=== PATIENT | female | born 1975 | race African-American/Black ===

== ENCOUNTER 2020-12-07 07:42 | Outpatient (CLI) | payer OTHER, SELFPAY ==
--- NOTE | 2020-12-07 08:28 | ECG_ITS ---
Measurements Intervals [place] Rate: 50 P: 0 WV: 189 QRS: 18 QRSD: 93 T: 14 QT: 487 QTc: 446 Interpretive Statements SINUS BRADYCARDIA BORDERLINE ECG Electronically Signed On 12-07-2020 8:52:13 CDT by Russell Palmer D.O.
[2020-12-07 08:44] LABS: Anion Gap 9 mmol/L (8-16); Blood Urea Nitrogen 21 mg/dL (7-17); Calcium 9.1 mg/dL (8.4-10.2); Carbon Dioxide 26 mmol/L (22-30); Chloride 106 mmol/L (98-107); Estimated Glomerular Filt Rate 59; Glucose 103 mg/dL (65-105); Potassium 3.8 mmol/L (3.4-5.0); Sodium 141 mmol/L (137-145)
== END 2020-12-07 07:43 | disposition home or self-care (01) ==
PROVIDERS: Visit Provider Anesthesiology
DX: Z79.899 Other long term (current) drug therapy (principal); I10 Essential (primary) hypertension; Z01.818 Encounter for other preprocedural examination; R94.31 Abnormal electrocardiogram [ECG] [EKG]
CPT/HCPCS: 36415; 80048; 93005

== ENCOUNTER 2020-12-13 01:42 | Day surgery (SDC) | payer OTHER, SELFPAY ==
[2020-12-01 08:52] VITALS: BMI 38.4
[2020-12-13] VITALS (12 sets, daily range): BP systolic 137–168; BP diastolic 68–98; PULSE 50–68; RESP 12–20; TEMP 36.4–36.8; O2SAT 94–100
[2020-12-13] MEDS: ACETAMINOPHEN 500 MG TABLET 1000 MG PO (11:19)
[2020-12-13] MEDS: KETOROLAC 15 MG/ML VIAL (*BKC) IV PUSH (11:21)
[2020-12-13] MEDS: LACTATED RINGERS 1,000 ML 30 ML IV CONT ×2 (11:28→14:08)
--- NOTE | 2020-12-13 12:00 | WPDANESEPPF ---
Anes - Initial Pre Proc Eval Procedure: Operation Date: 12/13/20 12:45 Proposed Procedures p Laparoscopic Bilateral Tubal Ligation, with Rings, - Khari Gallego MD s Hysteroscopy With Valerie Ablation - Khari Gallego MD Date/Time: 12/13/20 12:00 Surgeon: Khari Gallego MD Pre Op Diagnosis: abnormal uterine bleeding, desires sterilization Patient Data Age: 45 Gender: F Height: 1.68 m Weight: 107.8 kg Last Vital Signs Temp 36.8 C 12/13/20 11:39 Pulse 53 L 12/13/20 11:39 Resp 14 12/13/20 11:39 BP 139/80 12/13/20 11:39 Pulse Ox 100 12/13/20 11:39 Allergies Allergy/AdvReac Type Severity Reaction Status Date / Time No Known Allergies Allergy Unverified 12/13/20 11:36 Home Medications Medication Instructions Recorded Confirmed Type Adult Low Dose Aspirin 81 mg PO DAILY 11/30/20 12/13/20 History hydrochlorothiazide 25 mg PO DAILY 11/30/20 11/30/20 History losartan 100 mg PO DAILY 11/30/20 11/30/20 History metoprolol tartrate 100 mg PO DAILY 11/30/20 12/13/20 History montelukast 10 mg PO DAILY 11/30/20 11/30/20 History blggfihyocxv-eky-lkwn-FA-vit K 1 tablet PO DAILY 11/30/20 11/30/20 History [Adults Multivitamin] temazepam 30 mg PO HS 11/30/20 11/30/20 History trazodone 100 mg PO HS PRN 11/30/20 11/30/20 History ooetgokfymw-ursinnqps-dacxnini 2 inh INHALATION PRN PRN 12/01/20 12/01/20 History [Trelegy Ellipta] Patient hx anesthesia problems: none Family hx anesthesia problems: none PMFSH Past Medical History Medical History (Updated 12/13/20 @ 12:03 by Justin Dobson MD) HTN (hypertension) Obesity Surgical History Surgical History (Updated 12/13/20 @ 12:03 by Justin Dobson MD) Hx of tonsillectomy Social History Social History Smoking status: Never smoker Alcohol intake: current Drinks per week: 4 Substance use: never Substance use type: does not use Anes - Eval Final PreProcedure Day of Procedure 12/13/20 12:00 Patient weight: obese Heart: regular rate and rhythm Lungs: clear to auscultation Airway: Mallampati scale class II Neurological: alert and oriented Last oral intake: >/= 8 hours ASA classification: III Emergent: no Anesthetic plan: proceed Anesthesia type and monitoring: general ETT and standard monitoring Informed Consent: The patient's anesthetic plan and its attendant risks and benefits were discussed with the patient/family/POA. Questions were solicited and answers provided to the satisfaction of the patient/family/POA.
--- NOTE | 2020-12-13 12:29 | PM.HPGS ---
History of Present Illness History of Present Illness Consent: Risks, benefits, and alternatives have been discussed and questions answered. Patient agrees to proceed with procedure. Chief complaint: abnormal uterine bleeding, desires sterilization Narrative: Karan Wild is a 45 year old female A1 with abnormal bleeding and desires sterilization Review of Systems Review of Systems: All systems reviewed & are unremarkable except as noted in HPI and below PMFSH Past Medical History Medical History (Updated 12/13/20 @ 12:30 by Khari Gallego MD) Abnormal uterine bleeding (AUB) HTN (hypertension) Obesity Request for sterilization Surgical History Surgical History Hx of tonsillectomy Social History Social History Smoking status: Never smoker Alcohol intake: current Drinks per week: 4 Substance use: never Substance use type: does not use Meds Home Medications and Allergies Home Medications Medication Instructions Recorded Confirmed Type Adult Low Dose Aspirin 81 mg PO DAILY 11/30/20 12/13/20 History hydrochlorothiazide 25 mg PO DAILY 11/30/20 11/30/20 History losartan 100 mg PO DAILY 11/30/20 11/30/20 History metoprolol tartrate 100 mg PO DAILY 11/30/20 12/13/20 History montelukast 10 mg PO DAILY 11/30/20 11/30/20 History rbafcwuggbiq-amr-jzwl-FA-vit K 1 tablet PO DAILY 11/30/20 11/30/20 History [Adults Multivitamin] temazepam 30 mg PO HS 11/30/20 11/30/20 History trazodone 100 mg PO HS PRN 11/30/20 11/30/20 History sneiasurddg-veltgvfgs-rafkccug 2 inh INHALATION PRN PRN 12/01/20 12/01/20 History [Trelegy Ellipta] Allergies Allergy/AdvReac Type Severity Reaction Status Date / Time No Known Allergies Allergy Unverified 12/13/20 11:36 Vital Signs Vital Signs - 24 hr 12/13/20 11:39 Temperature 36.8 C Pulse Rate 53 L Respiratory Rate 14 Blood Pressure 139/80 Pulse Oximetry 100 Exam Cardio: Rate: regular rate Rhythm: regular rhythm GI: Auscultation: normal bowel sounds : Bimanual exam- vagina & uterus: normal bimanual exam Assessment and Plan Assessment and plan (1) Abnormal uterine bleeding (AUB): Code(s): N93.9 - Abnormal uterine and vaginal bleeding, unspecified Status: Acute Assessment and Plan: Scheduled for a laparoscopy with a bilateral tubal ligation and hysteroscopy with ablation. (2) Request for sterilization: Code(s): Z30.2 - Encounter for sterilization Status: Acute
--- NOTE | 2020-12-13 12:32 | WPDHPUPDATE1 ---
History and Physical Update Update Date/Time: 12/13/20 12:32 History and Physical has been reviewed, including an updated exam of the patient. There are NO changes in the patient's condition. Risks, benefits, and alternatives have been discussed and questions answered. Patient agrees to proceed with procedure.
[2020-12-13] MEDS: HYDROmorphone HCL INJ (*CRX) 1 MG/ML SYR 0.25 MG IV PUSH ×6 (14:34→15:25)
--- NOTE | 2020-12-13 14:39 | P.OP_ITS ---
Procedure Note - Detailed Date of Procedure 12/13/20 Pre-op Diagnosis abnormal uterine bleeding, desires sterilization Post-op Diagnosis same Procedure Performed diagnostic laparoscopy with bilateral salpingectomy and hysteroscopy with Mitch Coombs and [place] ablation Surgeon Khari Gallego MD Anesthesia general Indications irregular heavy bleeding Findings grossly normal uterus tubes and ovaries and large fibroid in the endometrial cavity Description of Procedure patient taken to the operating room with IV running she was prepped and draped in a normal sterile fashion and placed in the lithotomy position. A bivalve speculum was placed into the vagina and acorn uterine manipulator was placed with a single-tooth tenaculum on the anterior lip of the cervix. The bladder was drained 100cc of clear urine. attention was then turned to the abdomen in which 5cc lidocaine with epi was injected in the umbilical fold. A 1cm incision was made and the Veress needle was introduced into the uterine cavity water drop test was done and the abdomen was and some insufflated with CO2 gas noting a -2 mm and pressure prior to insufflation. The abdomen was filled with CO2 until max pressure of 15mmHg. A trocar 5mm was placed under direct visualization into the umbilical fold and a right and left trocar was placed under direct visualization. The left tube was grasped and the LigaSure device was used to transect and ligate the left tube and was removed from the abdomen through the 5mm port attention was then turned to the right to and hand the same procedure was transected and ligated and removed out of the 5mm port hemostasis was noted right and left trocars were removed and the umbilical trocar was removed and the gas was deflated. Attention was then turned to the vagina the tenaculum and the acorn manipulator removed. [place] speculum was placed into the vagina and the cervix was grasped with a single-tooth tenaculum. The uterus was sound to 10cm and the cervix was dilated with Quang dilators and the uterine cavity was measured to be 6 the hysteroscope was introduced and noted a large fibroid on the patient's left wall of the uterus this fibroid was thought to transect through the MyoSure device. The MyoSure device was then removed. The chap[place]ito was introduced into the uterine cavity and the balloon was insufflated and the device passed on the 1st attempt. The minor device was activated the uterus was ablated for 2 minutes and device were removed. The hysteroscope was reintroduced and noted on ablated uterus. All instruments were removed from the vagina And hemostasis was assured. patient tolerated the procedure well. patient was taken to the recovery room in stable condition. Estimated Blood Loss 20 Urine Output 100 Drains No Packing No Pathology none sent Complications None Condition stable Disposition PACU
[2020-12-13] MEDS: oxyCODONE HCL (*CRX) 5 MG TAB IR PO (16:05)
== END 2020-12-13 16:50 | disposition home or self-care (01) ==
PROVIDERS: Visit Provider Obstetrics & Gynecology
PROC: (CPT 58671; principal; 2020-12-13 12:45)
PROC: 0U5B8ZZ Destruction of Endometrium, Via Natural or Artificial Opening Endoscopic (ICD-10-PCS; CPT 58563; 2020-12-13 12:45)
DX: Z30.2 Encounter for sterilization (principal); N93.9 Abnormal uterine and vaginal bleeding, unspecified; D25.0 Submucous leiomyoma of uterus; I10 Essential (primary) hypertension; Z79.82 Long term (current) use of aspirin; E66.9 Obesity, unspecified; Z68.38 Body mass index [BMI] 38.0-38.9, adult
CPT/HCPCS: 58661; 58563; 36415; 80048; 88302; 88305; 93005; A9270; J0330; J1100; J1170; J1885; J2250; J2405; J2704; J3010; J7030; J7120

== ENCOUNTER 2023-07-03 10:17 | Outpatient (CLI) | payer BC, SELFPAY ==
--- NOTE | 2023-07-03 10:28 | ECG_ITS ---
Measurements Intervals [place] Rate: 54 P: 37 ND: 183 QRS: 19 QRSD: 87 T: 53 QT: 431 QTc: 411 Interpretive Statements SINUS BRADYCARDIA BASELINE ARTIFACT- I, II, III, AVR, AVL, AVF BORDERLINE ECG COMPARED TO ECG 12/07/2020 08:45:59 NO SIGNIFICANT CHANGES Electronically Signed On 07-03-2023 11:44:14 [employer] by Russell Palmer D.O.
[2023-07-03 11:02] LABS: Anion Gap 6 mmol/L (8-16); Blood Urea Nitrogen 15 mg/dL (7-17); Carbon Dioxide 26 mmol/L (22-30); Chloride 106 mmol/L (98-107); Estimated Glomerular Filt Rate > 60; Glucose 98 mg/dL (65-110); Potassium 3.9 mmol/L (3.4-5.0); Sodium 138 mmol/L (137-145)
== END 2023-07-03 10:18 | disposition home or self-care (01) ==
LOC: ANHSURGERY 10:24
PROVIDERS: Anesthesiology; PCP Nurse Practitioner Family; Visit Provider Obstetrics & Gynecology
DX: Z01.818 Encounter for other preprocedural examination (principal); N93.9 Abnormal uterine and vaginal bleeding, unspecified; I10 Essential (primary) hypertension; R93.1 Abnormal findings on diagnostic imaging of heart and coronary circulation; Z79.899 Other long term (current) drug therapy
CPT/HCPCS: 36415; 80048; 86850; 86900; 86901; 93005

== ENCOUNTER 2023-08-01 01:21 | Day surgery (SDC) | payer BC, SELFPAY ==
[2023-06-27 14:37] VITALS: BMI 39.6
--- NOTE | 2023-06-27 14:38 | PC.NURSE ---
Addendum entered by Clarisse Posada RN 07/20/23 10:21: PT TO ARRIVE AT 1000 ON 08/01/23 FOR SURGERY AT 1200. MAY TAKE METOPROLOL AND CLONIDINE IF NEEDED MORNING OF SURGERY. LAST DOSE OF VITAMINS 07/28/23. Original Note: Report to the Outpatient Waiting Room, entrance under the green pavilion located off [facility], at time _1000_ on date _[id number]_. Planned Procedure Time: _1200_. Time changes happen often and if your time is changed the preop area will call you the afternoon before. - You and your visitor will be asked to self-screen and do not enter if you have any COVID symptoms. - A mask is optional within the hospital at this time. Patients may have clear liquids (water, carbonated beverages, clear teas, apple juice) until 3 hours prior to surgery with a maximum of 20 ounces. - No food from midnight until time of surgery Take the following medications with a SIP of water the morning of surgery: ___Metoprolol DO NOT STOP ANY OF YOUR OTHER PRESCRIPTION MEDICATIONS PRIOR TO SURGERY ?EXCEPT THE FOLLOWING Medications to discontinue per physician Multivitamin Date to take last [id number] Please no make-up, nail turkmen, hairspray, perfume, deodorant, or body powder the day of surgery. No jewelry (including any body piercings) or valuables the day of surgery, leave them at home. Please take a shower or bath the night before, or the morning of, surgery with an antibacterial soap. Wear comfortable, loose fitting clothing. - Jewelry must be removed prior to entering the operating room. Rings and piercings that are not removed may be cut off. - The hospital will not accept responsibility for valuables. - Please leave all valuables, including medications, at home the day of surgery. If you are going home after surgery, a licensed sprinkler driver must drive you home. - NO public transportation without another adult if you receive anesthesia. - We recommend that an adult stay with you for 24 hours following discharge. - We also recommend that you do not drive, make important decision, drink alcoholic beverages, or take any drugs that were not prescribed by your health care provider for at least 24 hours after your discharge time. Follow any additional instructions given to you from your surgeon. If you or anyone in your household have experienced Covid symptoms in the past week, please notify your surgeon or the nurse liaison at the phone number below for possible testing. Telephone instructions given to __Karan__and asked if any additional questions and then verbalized understanding. Patient advised to call surgeon office or pre surgery nurse liaison [phone] if any additional questions.
--- NOTE | 2023-07-20 10:20 | PC.NURSE ---
Medications updated. Pt states no other changes in medications or health history since initial interview. New pre-op instructions reviewed with pt. Pt denies further questions at this time.
--- NOTE | 2023-07-31 14:26 | P.PNAN_ITS ---
Anes - Initial Pre Proc Eval Procedure: Operation Date: 08/01/23 12:00 Proposed Procedures p Laparoscopic Assisted Vaginal Hysterectomy - Khari Gallego MD Date/Time: 07/31/23 14:26 Surgeon: Khari Gallego MD Pre Op Diagnosis: leiomyoma of uterus, excessive & freq menst w/cycl Patient Data Age: 48 Gender: F Height: 1.68 m Weight: 111.4 kg Allergies Allergy/AdvReac Type Severity Reaction Status Date / Time No Known Allergies Allergy Unverified 08/01/23 10:36 Home Medications Medication Instructions Recorded Confirmed Type Adult Low Dose Aspirin 81 mg PO DAILY 11/30/20 08/01/23 History hydrochlorothiazide 25 mg tablet 25 mg PO DAILY 11/30/20 08/01/23 History losartan 100 mg tablet 100 mg PO DAILY 11/30/20 08/01/23 History metoprolol tartrate 100 mg tablet 100 mg PO DAILY 11/30/20 08/01/23 History montelukast 10 mg tablet 10 mg PO DAILY PRN Allergy Symptoms 11/30/20 07/20/23 History multivit with minerals-iron 18 1 tablet PO DAILY 11/30/20 08/01/23 History mg-folic ac 400 mcg-vit K 25 mcg tablet (Adults Multivitamin) temazepam 30 mg capsule 30 mg PO HS 11/30/20 08/01/23 History clonidine HCl 0.2 mg tablet 0.2 mg PO TID PRN Hypertension 07/20/23 07/20/23 History hydralazine 50 mg tablet 50 mg PO DAILY 08/01/23 08/01/23 History Patient hx anesthesia problems: none Family hx anesthesia problems: none Results Review: All pre-operative results and documents have been reviewed as part of the pre- operative evaluation. [facility] Past Medical History Medical History (Updated 12/13/20 @ 12:30 by Khari Gallego MD) Abnormal uterine bleeding (AUB) HTN (hypertension) Obesity Request for sterilization Surgical History Surgical History Hx of tonsillectomy Social History Social History Smoking status: Never smoker Alcohol intake: current Drinks per week: 3 Substance use: never Substance use type: does not use Living arrangements: with family Spiritual care concerns: No Anes - Eval Final PreProcedure Day of Procedure 07/31/23 14:26 Patient weight: obese Heart: regular rate and rhythm Lungs: clear to auscultation Airway: Mallampati scale class III Neurological: alert and oriented Last oral intake: >/= 8 hours ASA classification: III Emergent: no Anesthetic plan: proceed Anesthesia type and monitoring: general ETT and standard monitoring Results Review: All pre-operative results and documents have been reviewed as part of the pre- operative evaluation. Informed Consent: The patient's anesthetic plan and its attendant risks and benefits were discussed with the patient/family/POA. Questions were solicited and answers provided to the satisfaction of the patient/family/POA.
[2023-08-01] VITALS (9 sets, daily range): BP systolic 126–178; BP diastolic 67–88; PULSE 50–77; RESP 13–18; TEMP 36.2–36.9; O2SAT 99–100
[2023-08-01] MEDS: ACETAMINOPHEN 500 MG TABLET 1000 MG PO (10:35)
[2023-08-01] MEDS: LACTATED RINGERS 1,000 ML 30 ML IV CONT ×2 (10:50→14:41)
[2023-08-01] MEDS: KETOROLAC 15 MG/ML VIAL (*BKC) IV PUSH (11:03)
--- NOTE | 2023-08-01 11:29 | PM.IMHP ---
H&P: HPI History of Present Illness Date/Time: 08/01/23 11:29 Chief Complaint: abnormal bleeding Narrative: 48 y/o with long history of heavy abnormal bleeding presented to the office with prolonged bleeding. [facility] Past Medical History Medical History Abnormal uterine bleeding (AUB) HTN (hypertension) Obesity Request for sterilization Surgical History Surgical History Hx of tonsillectomy Social History Social History Smoking status: Never smoker Alcohol intake: current Drinks per week: 3 Substance use: never Substance use type: does not use Living arrangements: with family Spiritual care concerns: No Meds Home Medications and Allergies Home Medications Medication Instructions Recorded Confirmed Type Adult Low Dose Aspirin 81 mg PO DAILY 11/30/20 08/01/23 History hydrochlorothiazide 25 mg tablet 25 mg PO DAILY 11/30/20 08/01/23 History losartan 100 mg tablet 100 mg PO DAILY 11/30/20 08/01/23 History metoprolol tartrate 100 mg tablet 100 mg PO DAILY 11/30/20 08/01/23 History montelukast 10 mg tablet 10 mg PO DAILY PRN Allergy Symptoms 11/30/20 07/20/23 History multivit with minerals-iron 18 1 tablet PO DAILY 11/30/20 08/01/23 History mg-folic ac 400 mcg-vit K 25 mcg tablet (Adults Multivitamin) temazepam 30 mg capsule 30 mg PO HS 11/30/20 08/01/23 History clonidine HCl 0.2 mg tablet 0.2 mg PO TID PRN Hypertension 07/20/23 07/20/23 History hydralazine 50 mg tablet 50 mg PO DAILY 08/01/23 08/01/23 History Allergies Allergy/AdvReac Type Severity Reaction Status Date / Time No Known Allergies Allergy Unverified 08/01/23 10:36 Vital Signs Vital Signs - 24 hr 08/01/23 10:16 Temperature 97.1 F L Pulse Rate 58 L Respiratory Rate 18 Blood Pressure 154/85 H Pulse Oximetry 100 Oxygen Delivery Room Air Exam Chest: Chest palpation & inspection: normal inspection of the chest Resp: Effort & Inspection: normal respiratory effort Cardio: Rate: regular rate Rhythm: regular rhythm Heart sounds: S1 normal heart sound present and S2 normal heart sound present : External Female Exam: normal external appearance Speculum Exam - Vagina: normal appearance of the vagina and normal vaginal discharge Speculum Exam - Cervix: normal appearance of the cervix Extrem: General: normal to inspection Assessment and Plan Assessment and plan (1) Abnormal uterine bleeding (AUB): Code(s): N93.9 - Abnormal uterine and vaginal bleeding, unspecified Status: Acute Plan Laparoscopic assisted vaginal hysterectomy - risk and benefits reviewed with patient in detail including bleeding, infection, and trauma.
--- NOTE | 2023-08-01 11:43 | WPDHPUPDATE1 ---
History and Physical Update Update Date/Time: 08/01/23 11:43 History and Physical has been reviewed, including an updated exam of the patient. There are NO changes in the patient's condition. Risks, benefits, and alternatives have been discussed and questions answered. Patient agrees to proceed with procedure.
[2023-08-01] MEDS: ceFAZolin 2 GM/D5W 50 ML 2 GM/50 ML BAG IVPB (12:11)
[2023-08-01] MEDS: LIDO 1%/EPINEPHRINE 1:100,000 50 ML VIAL 30 ML INFILTRATE (13:03)
--- NOTE | 2023-08-01 14:38 | P.OPB_ITS ---
Procedure Note - Brief Procedure Note - Brief Date of procedure: 08/01/23 leiomyoma of uterus, excessive & freq menst w/cycl Post-op diagnosis: Same Procedure performed: [facility] Surgeon: Khari Gallego MD Findings: normal ovaries enlarged uterus with pedunculated fibroid Description of procedure: laparoscopic assisted removal of uterus and cervix through vagina Estimated blood loss (mL): 300 Urine output (mL): 100 Packing: Yes Pathology: Yes Condition: Stable Disposition: PACU
--- NOTE | 2023-08-01 14:41 | W.PM.PROC2 ---
Procedure Note - Detailed Date of Procedure 08/01/23 Pre-op Diagnosis leiomyoma of uterus, excessive & freq menst w/cycl Post-op Diagnosis Same Procedure Performed [facility] Surgeon Khari Gallego MD Anesthesia General Indications Abnormal uterine bleeding Findings enlarged uterus with fibroids normal ovaries Description of Procedure A general anesthesia was induced and the patient was placed in the dorsal lithotomy position. The abdomen, perineum, and vagina were prepped and draped in the usual fashion. A barros catheter inserted into the bladder and attached to straight drainage. After the initial preparation, the procedure commenced at the vagina. With a speculum in place to visualize the cervix, the anterior lip of the cervix were separately grasped and clamped with single tooth tenaculums. The uterus was sounded to 8cm an acourn manipulator was placed for manipulation purposes being careful not to puncture the uterus. . Attention was then turned to the abdomen. Following infiltration with lidocaine with epinephrine, an infraumbilical incision was made and the Veress needle was gently advanced taking care to feel for the typical sensation of penetrating the peritoneum. With CO2 infiltration, an opening pressure of 7 mmHg was noted, and following this, a pneumoperitoneum of 15 mmHg was created. A 5 mm trocar was then passed through the same incision and the laparoscope was then inserted through the trocar sleeve. Visualization of the peritoneal cavity was then obtained and a brief inspection did not reveal any signs of complications from entry. Under direct observation, 5mm flank ports were then placed laterally on both the right and left sides taking care to respect anatomical landmarks and vessels. Once the placement of the ports was complete, the actual laparoscopic procedure began. Beginning on the right side the round ligament was then ligated and cut and distally along the length of the fallopean tube had been transected prior. the mesosalpinx was exposed by lifting the ovary up towards the anterior abdominal wall. The mesosalpinx was then sequentially, clamped, ligated, and cut using the ligasure working alongside the length of the tube and towards the cornua. Once the level of the cornua was reached (the tube was cut, removed through the port, and) attention was then turned to the other side. The same process was repeated on the left, sequentially clamping, ligating, and cutting the mesosalpinx being sure to not injure the adjacent ovarian tissue or other surrounding structures. Following this, the anterior leaf of the broad ligament was then taken down on the left side, dissecting down towards the peritoneal reflection at the base of the bladder and adjacent to the cervix. The same process was then repeated on the left side such that both sides met and the anterior leaflet had been appropriately skeletonized. To ensure excellent hemostasis prior to further manipulation, the pedicles of the cardinal ligament was then ligated and divided on each side using the Ligasure. Attention was then turned to the vaginal aspect of the surgery. . A weighted speculum wa placed in the posterior aspect of the vagina and the weighted speculum was inserted after manipulator removed. . The tenacula were repositioned anteriorly and posteriorly. A circumferential incision was made at the cervical vaginal reflection using cautery after injecting with 1% lidocaine with epinephrine. This was undermind first anteriorly and a copotomy made without difficulty. This was then repeated posteriorly and a similar colpotomy made. Yuliet retractors were then placed into each of these incisions. Beginning first on the patient's left, the uterosacral and cardnal ligament was clamped, divided, and suture ligated. Two bites were required to reach the previous dssection margin of the left side. THe same process was then repeated on the patient's right hand side, at which point, the specimen was c
[2023-08-01] MEDS: fentaNYL CITRATE INJ (*CRX) 100 MCG/2 ML VIAL 25 MCG IV PUSH ×3 (15:15→15:38)
--- NOTE | 2023-08-01 15:24 | SUR.PHASEI ---
1520 - spoke with friend. updated. friend has pts. purse and bookbag.
[2023-08-01] MEDS: DEXTROSE 5%/0.45% SOD CHL 1,000 ML 125 ML IV CONT ×2 (16:45→23:38)
[2023-08-01] MEDS: KETOROLAC 30 MG/ML VIAL (*BKC) IV PUSH ×2 (17:20→23:40)
[2023-08-01] MEDS: hydrALAZINE HCL 50 MG TABLET PO ×2 (17:48→21:39)
[2023-08-01] MEDS: SIMETHICONE 80 MG TAB.CHEW PO ×2 (17:52→21:30)
[2023-08-01] MEDS: METOPROLOL TARTRATE 50 MG TAB 100 MG PO (21:29)
[2023-08-01] MEDS: SENNA/DOCUSATE SODIUM TABLET 2 TAB PO (21:30)
[2023-08-01] MEDS: HYDROcodone/acetaminophen (*CRX) 5-325 MG TABLET 1 TAB PO (21:40)
[2023-08-01] MEDS: cloNIDine HCL 0.2 MG TABLET PO (23:37)
[2023-08-02 03:30] VITALS: BP 151/65; PULSE 69; RESP 18; TEMP 36.6; O2SAT 100
[2023-08-02] MEDS: KETOROLAC 30 MG/ML VIAL (*BKC) IV PUSH (05:28)
[2023-08-02 06:43] LABS: Basophils Percent Auto 0.1 % (0.2-1.2); Hematocrit 32.1 % (37.0-47.0); Hemoglobin 10.3 g/dL (12.0-15.0); Immature Granulocyte Absolute 0.03 K/mm3 (0.00-0.031); Immature Granulocyte Percent A 0.3 % (0-0.5); Lymphocytes Absolute Auto 1.19 K/mm3 (0.9-3.2); Lymphocytes Percent Auto 11.4 % (18.3-44.2); Mean Corpuscular HGB Conc 32.1 g/dl (32-36); Mean Corpuscular Hemoglobin 29.7 pg (26-34); Mean Corpuscular Volume 92.5 fl (80-100); Mean Platelet Volume 10.1 fl (7.4-10.4); Monocytes Absolute Auto 1.1 K/mm3 (0.1-0.6); Monocytes Percent Auto 10.3 % (2.6-8.5); Neutrophils Absolute Auto 8.2 K/mm3 (1.3-6.7); Neutrophils Percent Auto 77.9 % (45.5-73.1); Platelet Count Result 204 k/mm3 (150-375); Red Blood Count 3.47 M/mm3 (4.2-5.4); Red Cell Distribution Width 14.5 % (11.5-14.5); White Blood Count 10.5 K/mm3 (4.5-10.0)
[2023-08-02 07:04] LABS: Anion Gap 6 mmol/L (8-16); Blood Urea Nitrogen 13 mg/dL (7-17); Calcium 8.3 mg/dL (8.4-10.2); Carbon Dioxide 24 mmol/L (22-30); Chloride 106 mmol/L (98-107); Estimated CRCL calculation 79 ml/min; Estimated Glomerular Filt Rate > 60; Glucose 125 mg/dL (65-110); Potassium 3.7 mmol/L (3.4-5.0); Sodium 136 mmol/L (137-145)
[2023-08-02 07:25] VITALS: BP 135/67; PULSE 54
[2023-08-02] MEDS: HYDROcodone/acetaminophen (*CRX) 5-325 MG TABLET 1 TAB PO (07:47)
[2023-08-02] MEDS: SIMETHICONE 80 MG TAB.CHEW PO (07:47)
[2023-08-02 07:49] VITALS: PULSE 54
[2023-08-02] MEDS: hydroCHLOROthiazide 25 MG TABLET PO (07:49)
[2023-08-02] MEDS: METOPROLOL TARTRATE 50 MG TAB 100 MG PO (07:49)
[2023-08-02] MEDS: LOSARTAN POTASSIUM 100 MG TABLET PO (07:50)
[2023-08-02] MEDS: hydrALAZINE HCL 50 MG TABLET PO (07:50)
[2023-08-02 09:05] VITALS: BP 126/68; PULSE 56; RESP 18; TEMP 36.6; O2SAT 100
[2023-08-02] MEDS: MULTIVITAMINS /C LUTEIN (CENTRUM SILVER) TABLET *BKC 1 TAB PO (09:33)
--- NOTE | 2023-08-02 10:12 | P.PNAN_ITS ---
Anes - Prog Note Post-Op Date/Time: 08/02/23 10:12 Cardiovascular status: normal Respiratory status: normal Airway patency: baseline Mental status: baseline Post-Op hydration status: normal Vital Signs: Last Vital Signs Temp 36.6 C 08/02/23 09:05 Pulse 56 L 08/02/23 09:05 Resp 18 08/02/23 09:05 BP 126/68 08/02/23 09:05 Pulse Ox 100 08/02/23 09:05 O2 Del Method Room Air 08/01/23 20:30 O2 Flow Rate 5 08/01/23 15:15 Pain Score (VAS): 08/25 I/O: Intake & Output 08/01/23 08/02/23 08/02/23 23:59 07:59 15:59 Intake Total 1950 550 Output Total 1000 1100 200 Balance 950 -550 -200 Laboratory Tests 08/02/23 06:33 08/02/23 06:33 08/01/23 08/02/23 10:20 06:33 WBC 10.5 H RBC 3.47 L Hgb 10.3 L Hct 32.1 L MCV 92.5 MCH 29.7 MCHC 32.1 RDW 14.5 Plt Count 204 MPV 10.1 Immature Gran % (Auto) 0.3 Neut % (Auto) 77.9 H Lymph % (Auto) 11.4 L [place] % (Auto) 10.3 H Eos % (Auto) 0.0 Baso % (Auto) 0.1 L Lymph # (Auto) 1.19 [place] # (Auto) 1.1 H Eos # (Auto) 0.0 Baso # (Auto) 0.0 Abs Immat Gran (auto) 0.03 Absolute Neuts (auto) 8.2 H Absolute Nucleated RBC 0.0 Nucleated RBC % 0.0 Sodium 136 L Potassium 3.7 Chloride 106 Carbon Dioxide 24 Anion Gap 6 L BUN 13 Creatinine 1.00 Estim Creat Clear Calc 79 Estimated GFR > 60 Glucose 125 H Calcium 8.3 L Blood Type AB Positive Antibody Screen Negative Post-procedural complaints: none Patient Feedback: Patient satisfied with anesthetic care.
[2023-08-02] MEDS: IBUPROFEN 600 MG TABLET PO (11:03)
== END 2023-08-02 08:24 | disposition home or self-care (01) ==
LOC: ANHSURGERY 09:41 → ANHOB2 08-02 08:24
PROVIDERS: PCP Nurse Practitioner Family; Visit Provider Obstetrics & Gynecology
PROC: 0UT9FZZ Resection of Uterus, Via Natural or Artificial Opening With Percutaneous Endoscopic Assistance (ICD-10-PCS; CPT 58552; principal; 2023-08-01 12:00)
DX: D25.0 Submucous leiomyoma of uterus (principal); D25.1 Intramural leiomyoma of uterus; N80.03 Adenomyosis of the uterus; N88.8 Other specified noninflammatory disorders of cervix uteri; N92.0 Excessive and frequent menstruation with regular cycle; I10 Essential (primary) hypertension; E66.01 Morbid (severe) obesity due to excess calories; Z68.41 Body mass index [BMI] 40.0-44.9, adult; Z79.82 Long term (current) use of aspirin
CPT/HCPCS: 58552; 36415; 80048; 85025; 86850; 86900; 86901; 88307; A9270; J0330; J0690; J1100; J1170; J1885; J2250; J2405; J2704; J3010; J7120

== ENCOUNTER 2023-08-08 15:21 | Emergency (ER) | payer BC, SELFPAY ==
--- NOTE | ~2023-08-08 | CT_ITS ---
EXAMINATION: CT abdomen pelvis w con DATE: 08/08/2023 19:32 INDICATION: Abnormal vaginal discharge. 1 week postop from hysterectomy. TECHNIQUE: Computed tomography (CT) of the abdomen and pelvis was performed with 100 mL Omnipaque 350 intravenous contrast. Automated exposure control and iterative reconstruction technique were employe d. The dose-length product was 1212.75 mGy-cm. COMPARISON: None. FINDINGS: The visualized portions of the lung bases demonstrate mild atelectasis. No pleural effusion . The heart size is normal. No pericardial effusion. There are numerous cysts in the liver measuring up to 5.3 cm. The gallbladder, spleen, pancreas, and adrenal glands are normal. There are numerous cy sts in each kidney measuring up to 6.7 cm on the left. Right kidney measures 13.5 x 6.7 x 6.3 cm. Lef t kidney measures 16.6 x 6.7 x 9.7 cm. There are no dilated loops of bowel. The appendix is normal. T here is rim-enhancing material containing gas in the hysterectomy surgical bed measuring 4.8 x 2.8 x 3.4 cm. There are no pathologically enlarged lymph nodes. There is no free intraperitoneal fluid. The re is mild thoracic spondylosis and moderate lumbar spondylosis. IMPRESSION: 1. Material in the hysterectomy surgical bed, which may be hematoma or abscess. 2. Polycystic kidney disease. Reviewed, dictated and finalized at location E. [facility]
--- NOTE | ~2023-08-08 | US_ITS ---
EXAMINATION: US venous doppler LE RT DATE: 08/08/2023 18:02 INDICATION: Right calf pain. TECHNIQUE: Grayscale ultrasound images without and with compression and Doppler ultrasound images of the right lower extremity veins were obtained. COMPARISON: None. FINDINGS: The visualized portions of right common femoral vein, profunda (deep) femoral vein, femoral vein, pop liteal vein, peroneal veins, posterior tibial veins, and greater saphenous vein outflow are patent. IMPRESSION: 1. No deep venous thrombosis. Reviewed, dictated and finalized at location E. [facility]
[2023-08-08 15:24] VITALS: BP 191/94; PULSE 75; RESP 20; TEMP 37.2; O2SAT 100
--- NOTE | 2023-08-08 17:38 | ED.RECABL ---
HPI - Recheck/Abnormal Lab/Rx General Chief Complaint: Recheck/Abnormal Lab/Rx <China Marie PA-C - Last Filed: 08/11/23 09:46> Stated Complaint: POST OP COMPLICATIONS <China Marie PA-C - Last Filed: 08/11/23 09:46> Time Seen by Provider: 08/08/23 17:16 <China Marie PA-C - Last Filed: 08/11/23 09:46> Source: patient <China Marie PA-C - Last Filed: 08/11/23 09:46> Mode of arrival: ambulatory <China Marie PA-C - Last Filed: 08/11/23 09:46> Limitations: no limitations <China Marie PA-C - Last Filed: 08/11/23 09:46> History of Present Illness HPI narrative: This is a 48 year old female that presents to the ER for foul smelling vaginal drainage. Reports she is 1 week post op from a laparoscopic hysterectomy. Reports she has had some blood drainage that has started to be foul smelling. Reports she has also noticed some right sided calf tenderness. Denies chest pain, shortness of breath, abdominal pain or vomiting. <China Marie PA-C - Last Filed: 08/11/23 09:46> Related Data Home Medications: Home Medications Medication Instructions Recorded Confirmed Adult Low Dose Aspirin 81 mg PO DAILY 11/30/20 08/01/23 hydrochlorothiazide 25 mg tablet 25 mg PO DAILY 11/30/20 08/01/23 losartan 100 mg tablet 100 mg PO DAILY 11/30/20 08/01/23 metoprolol tartrate 100 mg tablet 100 mg PO DAILY 11/30/20 08/01/23 montelukast 10 mg tablet 10 mg PO DAILY PRN Allergy Symptoms 11/30/20 07/20/23 multivit with minerals-iron 18 1 tablet PO DAILY 11/30/20 08/01/23 mg-folic ac 400 mcg-vit K 25 mcg tablet (Adults Multivitamin) temazepam 30 mg capsule 30 mg PO HS 11/30/20 08/01/23 clonidine HCl 0.2 mg tablet 0.2 mg PO TID PRN Hypertension 07/20/23 07/20/23 hydralazine 50 mg tablet 50 mg PO DAILY 08/01/23 08/01/23 <China Marie PA-C - Last Filed: 08/11/23 09:46> Allergies/Adverse Reactions: Allergies Allergy/AdvReac Type Severity Reaction Status Date / Time No Known Allergies Allergy Verified 08/08/23 19:42 <China Marie PA-C - Last Filed: 08/11/23 09:46> Review of Systems Review of Systems: CONSTITUTIONAL: Denies fever CARDIOVASCULAR: Reports edema. Denies chest pain RESPIRATORY: Denies dyspnea. GASTROINTESTINAL: Denies abdominal pain, nausea, vomiting GENITOURINARY: Denies dysuria <China Marie PA-C - Last Filed: 08/11/23 09:46> All systems reviewed & are unremarkable except as noted in HPI and below <China Marie PA-C - Last Filed: 08/11/23 09:46> PMFSH Past Medical History Medical History: Medical History Abnormal uterine bleeding (AUB) HTN (hypertension) Obesity Post-operative pain Request for sterilization <China Marie PA-C - Last Filed: 08/11/23 09:46> Surgical History Surgical History: Surgical History History of hysterectomy Hx of tonsillectomy <China Marie PA-C - Last Filed: 08/11/23 09:46> Social History Social History: Social History Smoking status: Never smoker Alcohol intake: current Drinks per week: 3 Substance use: never Substance use type: does not use Living arrangements: with family Spiritual care concerns: No <China Marie PA-C - Last Filed: 08/11/23 09:46> Exam Narrative: GENERAL: Well-appearing, well-nourished, and in no acute distress. HEAD: Normocephalic, atraumatic. EYES: EOMI. CHEST: Clear to auscultation. No respiratory distress. No wheezes rales or rhonchi HEART: Regular rate and rhythm. No murmur heard. Normal peripheral pulses. ABDOMEN: Soft, nontender, nondistended, normal active bowel sounds. Incisions are clean, dry and intact EXTREMITIES: Normal range of motion. No edema. SKIN: Warm, dry, no rash. NEURO: No focal deficits. Alert and oriented x3. PSYCH: Normal mo
[2023-08-08 17:40] VITALS: BP 144/95; PULSE 58; RESP 18; O2SAT 100
[2023-08-08 18:24] LABS: Basophils Percent Auto 0.4 % (0.2-1.2); Eosinophils Absolute Auto 0.5 K/mm3 (0-0.3); Eosinophils Percent Auto 4.7 % (0-4.4); Hematocrit 34.4 % (37.0-47.0); Hemoglobin 10.9 g/dL (12.0-15.0); Immature Granulocyte Absolute 0.03 K/mm3 (0.00-0.031); Immature Granulocyte Percent A 0.3 % (0-0.5); Lymphocytes Absolute Auto 1.67 K/mm3 (0.9-3.2); Lymphocytes Percent Auto 16.9 % (18.3-44.2); Mean Corpuscular HGB Conc 31.7 g/dl (32-36); Mean Corpuscular Hemoglobin 29.1 pg (26-34); Mean Corpuscular Volume 91.7 fl (80-100); Mean Platelet Volume 10.7 fl (7.4-10.4); Monocytes Absolute Auto 0.8 K/mm3 (0.1-0.6); Monocytes Percent Auto 7.8 % (2.6-8.5); Neutrophils Absolute Auto 6.9 K/mm3 (1.3-6.7); Neutrophils Percent Auto 69.9 % (45.5-73.1); Platelet Count Result 346 k/mm3 (150-375); Red Blood Count 3.75 M/mm3 (4.2-5.4); Red Cell Distribution Width 14.5 % (11.5-14.5); White Blood Count 9.9 K/mm3 (4.5-10.0)
[2023-08-08 18:34] LABS: Prothrombin Time 13.4 Seconds (11.1-14.7)
[2023-08-08 18:35] LABS: Partial Thromboplastin Time 34.5 SECONDS (22.3-36.8)
[2023-08-08 18:46] LABS: Alanine Aminotransferase 30 U/L (6-35); Albumin Level 4.2 g/dL (3.5-5.1); Alkaline Phosphatase 127 U/L (38-126); Anion Gap 13 mmol/L (8-16); Aspartate Amino Transferase 32 U/L (14-36); Bilirubin,Total 0.3 mg/dL (0.2-1.3); Blood Urea Nitrogen 19 mg/dL (7-17); Calcium 10.1 mg/dL (8.4-10.2); Carbon Dioxide 27 mmol/L (22-30); Chloride 98 mmol/L (98-107); Estimated CRCL calculation 57 ml/min; Estimated Glomerular Filt Rate 49; Glucose 124 mg/dL (65-110); Lipase 120 U/L (23-300); Potassium 3.5 mmol/L (3.4-5.0); Sodium 138 mmol/L (137-145)
[2023-08-08 18:47] LABS: CRP 5.2 mg/dL (<1.0)
[2023-08-08 18:52] LABS: Appearance Urine Clear (Clear); Bacteria Urine Rare /hpf; Bilirubin Urine Negative (Negative); Blood Urine Negative (Negative); Color Urine Yellow (Yellow); Glucose Urine UA Negative (Negative); Ketones Urine Negative (Negative); Leukocyte Esterase Ur Trace LEU/UL (Negative); Nitrate Urine Negative (Negative); Non Pathogenic Casts 0-2; Protein Urine Negative (Negative); RBC Urine 0-2 /hpf (0-2); Specific Grav Ur 1.006 (1.001-1.035); Squamous Epithelial Cell Urine None seen /hpf (Few); Urobilinogen Urine 0.2 mg/dL (<2.0); WBC Urine 0-5 /hpf
[2023-08-08 18:53] LABS: Add Urine Microscopic? YES
[2023-08-08 19:08] LABS: Erythrocyte Sedimentation Rate 63 mm/hr (0-20)
[2023-08-08] MEDS: SODIUM CHLORIDE 0.9% IV 1,000 ML 999 ML IV CONT (19:38)
[2023-08-08 19:42] VITALS: BP 147/84; PULSE 63; RESP 18; O2SAT 100
[2023-08-08] MEDS: CIPROFLOXACIN 500 MG TAB PO (20:31)
[2023-08-08] MEDS: metroNIDAZOLE 500 MG TABLET PO (20:31)
== END 2023-08-08 20:35 | disposition home or self-care (01) ==
PROVIDERS: Emergency Provider Physician Assistant; PCP Nurse Practitioner Family
DX: N89.8 Other specified noninflammatory disorders of vagina (principal); I10 Essential (primary) hypertension; N99.840 Postprocedural hematoma of a genitourinary system organ or structure following a genitourinary system procedure; Z90.710 Acquired absence of both cervix and uterus
CPT/HCPCS: 36415; 74177; 80053; 81001; 83690; 85025; 85610; 85652; 85730; 86140; 87070; 93971; 96360; 99284; A9270; J7030; Q9967